=== PATIENT | male | born 1955 | race Caucasian/White ===

== ENCOUNTER 2020-04-08 09:53 | Outpatient (RCR) | payer OTHER, SELFPAY | END 2020-07-01 12:02 | disposition home or self-care (01) | LOC: ANHDMC 09:53 | PROVIDERS: PCP Internal Medicine; Visit Provider Nurse Practitioner | DX: E11.9 Type 2 diabetes mellitus without complications (principal); Z71.89 Other specified counseling | CPT/HCPCS: G0108 ==

== ENCOUNTER 2023-08-08 19:19 | Emergency (ER) | payer MEDICARE, SELFPAY ==
--- NOTE | ~2023-08-08 | XR_ITS ---
EXAMINATION: XR chest 2V DATE: 08/08/2023 19:44 INDICATION: Chest pain. Cough. TECHNIQUE: Frontal and lateral views of the chest were obtained. COMPARISON: None. FINDINGS: There is no pneumonia, pleural effusion, or pneumothorax. The heart size is normal. IMPRESSION: 1. No acute cardiopulmonary disease. Reviewed, dictated and finalized at location E.
[2023-08-08 19:18] VITALS: BP 134/88; PULSE 71; RESP 18; TEMP 37.2; O2SAT 97
--- NOTE | 2023-08-08 19:30 | ED.GENADULT ---
HPI - General Adult General Chief complaint: Fall Stated complaint: fall Time Seen by Provider: 08/08/23 19:29 Source: patient Mode of arrival: ambulatory Limitations: no limitations History of Present Illness HPI narrative: 68 years old white male drove his cell to the emergency room complaining of dry cough causing chest pain. Started few hours ago. Patient started cutting gas recently with some physical activities. Patient also complaining of sniffing and nasal congestion. History of seasonal allergy. He denies any fever, chills, shortness of breath, lightheadedness or dizziness. Patient is healthy otherwise, pre diabetic. Not on any medication Related Data Allergies Allergy/AdvReac Type Severity Reaction Status Date / Time No Known Allergies Allergy Verified 08/08/23 19:51 Review of Systems Review of Systems: All systems reviewed & are unremarkable except as noted in HPI and below PMFSH Past Medical History Medical History Diabetes Surgical History Surgical History History of hernia repair 2018 Family History Family History Mother Carcinoma of colon Father Heart disease Lung abnormality Other Diabetes mellitus Family history of malignant neoplasm Social History Social History Smoking status: Former smoker Additional smoking assessment comments: Only smoked socially for about 6 mos in his early 20s. Alcohol intake: never Exam Narrative: General appearance: Well-developed, well-nourished Skin: Normal color Head: Normocephalic, nontraumatic Eyes: Clear conjunctiva ENT: Oropharynx normal, ears normal, nose normal Neck: Supple, nontender Chest and respiratory: Airway patent, no respiratory distress, no accessory muscle use, slight tenderness across the chest with palpation, no bruises, no swelling or rash Heart: Regular rate/rhythm Abdomen: Soft, nontender, no organomegaly, quiet bowel sounds Vascular: Normal peripheral pulses, normal capillary refill. Musculoskeletal: Normal range of motion, nontender back Neurologic: Alert and oriented ?3, [employer] is normal as tested, no gross motor deficit Medical Decision Making MDM Narrative Medical decision making narrative: patient presents with dry cough causing chest pain few hours prior to arrival. Patient report having a fall few days ago with left knee bruises and his symptoms are improving. Denies any chest pain after the fall. The chest pain started immediately while having dry cough. Patient started cutting grass today after a while. Picking up a lot of tree branches off the ground. Differential diagnosis musculoskeletal, seasonal allergies, chest wall pain Chest x-ray showed no acute abnormalities. Diagnosis seasonal allergies, discharged on prednisone, Flonase and Zyrtec. Differential Diagnosis Differential Diagnosis: As above Imaging Data Radiologist's impression: chest x-ray showed no acute abnormalities Critical Care Time Critical Care Time Critical Care Time: No Discharge Plan Discharge Clinical Impression: Seasonal allergies, Acute chest wall pain Patient Disposition: Home, Self-Care Condition: Stable Additional Instructions: Return if symptoms are worsening , call your family physician for appointment, take Tylenol as as needed for aches and pain, continue home medications. Prescriptions: New fluticasone propionate [Flonase Allergy Relief] 50 mcg/actuation spray,suspension 2 spray intranasal DAILY Qty: 36.4
== END 2023-08-08 20:09 | disposition home or self-care (01) ==
PROVIDERS: Emergency Provider Emergency Medicine; PCP Family Medicine
DX: R07.89 Other chest pain (principal); T78.49XA Other allergy, initial encounter; E11.9 Type 2 diabetes mellitus without complications
CPT/HCPCS: 71046; 99283

== ENCOUNTER 2024-10-05 13:52 | Emergency (ER) | payer MEDICARE, SELFPAY ==
[2024-10-05 13:54] VITALS: BP 122/77; PULSE 86; RESP 18; TEMP 36.2; O2SAT 97
--- NOTE | 2024-10-05 14:01 | ED_ITS ---
HPI - Back Pain/Injury General Chief Complaint: Unspecified Stated Complaint: cant use restroom Time Seen by Provider: 10/05/24 14:01 Source: patient Mode of arrival: ambulatory Limitations: no limitations History of Present Illness HPI Narrative: this is a 69-year-old male with no significant past medical history that presents with some constipation last bowel movement 2 days ago there is no abdominal pain no nausea vomiting no hematochezia no bloody stool patient takes no medication and has been having issues with on and on bouts of constipation. Onset (ago): week(s) Related Data Allergies Allergy/AdvReac Type Severity Reaction Status Date / Time No Known Allergies Allergy Verified 08/08/23 19:51 Review of Systems Review of Systems: All systems reviewed & are unremarkable except as noted in HPI and below PMFSH Past Medical History Medical History Diabetes Surgical History Surgical History History of hernia repair 2018 Family History Family History Mother Carcinoma of colon Father Heart disease Lung abnormality Other Diabetes mellitus Family history of malignant neoplasm Social History Social History Smoking status: Former smoker Additional smoking assessment comments: Only smoked socially for about 6 mos in his early 20s. Alcohol intake: never Exam Const: General: healthy appearing and no acute distress Nutritional Appearance: well nourished Orientation/consciousness: patient oriented x3 Limitations: no limitations HENMT: Head: normal to inspection Neck: Neck: normal visual inspection Chest: Chest palpation & inspection: normal inspection of the chest Resp: Effort & Inspection: normal respiratory effort Auscultation: clear to auscultation bilaterally Cardio: Rate: regular rate Rhythm: regular rhythm GI: GI Palp: Yes Soft to palpation Auscultation: normal bowel sounds : General: Yes bladder normal to palpation Urinary Catheter: Urinary Catheter: patent and draining Back/Spine/Pelvis: Back: no CVA tenderness Skin: General skin exam: normal color Neuro: General: patient oriented x3, moves all extremities, no meningeal signs and no focal motor deficits Course Course Emergency Course: Constipation with last regular bowel movement 2 days ago has been having issues on and off no current medications no significant past medical history. Will send medication to patient's local pharmacy and advised patient to follow with his primary within a week. Vital Signs Vital signs: Vital Signs Temperature 36.2 C L 10/05/24 13:54 Pulse Rate 86 10/05/24 13:54 Respiratory Rate 18 10/05/24 13:54 Blood Pressure 122/77 10/05/24 13:54 Pulse Oximetry 97 10/05/24 13:54 Oxygen Delivery Room Air 10/05/24 13:54 Temperature 36.2 C L 10/05/24 13:54 Pulse Rate 86 10/05/24 13:54 Respiratory Rate 18 10/05/24 13:54 Blood Pressure 122/77 10/05/24 13:54 Pulse Oximetry 97 10/05/24 13:54 Oxygen Delivery Room Air 10/05/24 13:54 Critical Care Time Critical Care Time Critical Care Time: No Discharge Plan Discharge Clinical Impression: Constipation Qualifiers: Constipation type: unspecified constipation type Qualified Code(s): K59.00 - Constipation, unspecified Patient Disposition: Home Condition: Stable Instructions: Antibiotic Form, Constipation (ED) Additional Instructions: advised patient to take medication as prescribed and to follow with primary within the next 3 to 5 days for further evaluation and treatment. Patient Language: Mohawk Prescriptions: New magnesium citrate Solution 150 ml PO BID PRN (Reason: constipation) Qty: 296 0RF docusate sodium [Colace] 100 mg capsule 100 mg PO BID Qty: 20 0RF No Action fluticasone propionate [Flonase Allergy Relief] 50 mcg/actuation spray,suspension 2 spray intranasal DAILY Qty: 36.4 0RF Rx Instructions: administer into each nostril prednisone 20 mg tablet 40 mg PO BID Qty: 10 0RF Zyrtec 10 mg capsule 10 mg PO BID PRN (Reason: allergy symptoms) Qty: 30 0RF Follow-up/Referrals: Saurabh Rey MD [Primary Care Provider] -
--- NOTE | 2024-10-05 14:15 | PC.NURSE ---
Patient ambulatory to and from bathroom with steady gait. Patient able to have large bowel movement.
[2024-10-05 14:17] VITALS: BP 122/77; PULSE 86; RESP 18; TEMP 36.2; O2SAT 97
== END 2024-10-05 14:17 | disposition home or self-care (01) ==
LOC: CHSED 14:14
PROVIDERS: Emergency Provider Emergency Medicine; PCP Family Medicine
DX: K59.00 Constipation, unspecified (principal); E11.9 Type 2 diabetes mellitus without complications; Z87.891 Personal history of nicotine dependence
CPT/HCPCS: 99283